=== PATIENT | female | born 1990 | race Caucasian/White ===

== ENCOUNTER 2020-10-27 16:53 | Inpatient (IN) | payer OTHER ==
[2020-10-27] MEDS ORDERED: NALOXONE 0.4 MG/ML 1 ML VIAL IVP STA (16:57)
[2020-10-27] MEDS ORDERED: SODIUM CHLORIDE 0.9% 500 ML 500 ML IV STA (17:01)
[2020-10-27] MEDS ORDERED: NALOXONE 0.4 MG/ML 1 ML VIAL IV STA (17:01)
[2020-10-27] MEDS ORDERED: MIDAZOLAM 1 MG/ML 5 ML VIAL IV STA (17:05)
[2020-10-27] MEDS ORDERED: SUCCINYLCHOLINE CHLORIDE VIAL 200 MG/10 ML VIAL IV STA (17:05)
--- NOTE | 2020-10-27 17:10 | ED ---
General Adult HPI - General Chief complaint: Overdose Stated complaint: overdose Time Seen by Provider: 10/27/20 16:53 Source: EMS, RN notes reviewed Mode of arrival: EMS Limitations: altered mental status, physical limitation - History of Present Illness Initial comments: Patient is unresponsive 30-year-old female presenting to the emergency department from rehab facility. Patient was reportedly checking then when she became unresponsive. Bystander CPR was done for around 10 minutes and nasal Narcan was provided. EMS did additional CPR proximal he 5 minutes. Patient was PEA on the monitor. Patient received additional nasal Narcan and did start breathing on her own. Patient is unresponsive at this time and provides no information. Patient did receive 12 mg of intranasal Narcan. Patient does have multiple bottles and pills and some strange liquid in the bottle on her person hidden in her hair and in her bra. It was concern of possible . - Related Data Home Medications Medication Instructions Recorded Confirmed Gabapentin [Neurontin] 600 mg PO TID 10/27/20 10/27/20 Mirtazapine 45 mg PO HS 10/27/20 10/27/20 Prazosin HCl 2 mg PO HS 10/27/20 10/27/20 Topiramate 50 mg PO DAILY 10/27/20 10/27/20 buprenorphine HCL [Subutex] 8 mg SL BID 10/27/20 10/27/20 Allergies Allergy/AdvReac Type Severity Reaction Status Date / Time Unable to Assess Allergy Verified 10/27/20 17:38 Review of Systems ROS Statement: Those systems with pertinent positive or pertinent negative responses have been documented in the HPI. ROS Other: All systems not noted in ROS Statement are negative. Limitations: ROS unobtainable due to patients medical condition Past Medical History Past Medical History: Unable to Obtain History of Any Multi-Drug Resistant Organisms: Unobtainable Past Surgical History: Unable to Obtain Past Psychological History: Unable to Obtain Smoking Status: Unknown if ever smoked Past Alcohol Use History: Unable to Obtain Past Drug Use History: Unable to Obtain General Exam Limitations: altered mental status, physical limitation General appearance: other (Patient is drowsy but breathing on her own. Limited gag reflex) Head exam: Present: atraumatic Eye exam: Present: normal appearance, PERRL ENT exam: Present: normal oropharynx Neck exam: Present: normal inspection Respiratory exam: Present: normal lung sounds bilaterally Cardiovascular Exam: Present: regular rate, normal rhythm GI/Abdominal exam: Present: soft. Absent: distended, tenderness Extremities exam: Present: normal inspection Neurological exam: Present: other (Unresponsive. No gag. Does not withdraw to pain.) Psychiatric exam: Present: other (Unresponsive) Skin exam: Present: normal color Course Vital Signs 10/27/20 10/27/20 10/27/20 16:54 16:55 17:04 Temperature 97.6 F 98.0 F Pulse Rate 63 Respiratory 10 L 10 L Rate Blood Pressure 119/81 O2 Sat by Pulse 100 Oximetry 10/27/20 10/27/20 10/27/20 18:34 19:32 20:00 Temperature Pulse Rate 67 78 Respiratory 10 L 26 H 13 Rate Blood Pressure 124/88 122/93 O2 Sat by Pulse 100 100 Oximetry - Reevaluation(s) Reevaluation #1: 10/27/20 17:09 Patient given 0.4 Narcan followed by 2 mg of Narcan still with Limited gag reflex. EKG Findings - EKG Comments: EKG Findings:: Normal sinus rhythm at 79. GA 158. QRS 104. QT 396. QTc 454. Normal axis. Normal QRS. Inferior T wave inversion. Procedures - Intubation Paralytic: Succinylcholine Mg Given: 100 Laryngoscope: Rick Size: 3 ET Tube Size: 8 Tube Secured Depth (cm): 23 Tube Secured Location: lips Tube Placement Confirmation: visualized tube passing through cords, equal breath sounds bilaterally, no breath sounds over epigastrium, confirmation by capnometry Patient Tolerated Procedure: well, no complications Medical Decision Making - Medical Decision Making Patient reevaluated. Patient is moving somewhat on her own. Mother is present and updated. Case was discussed in detail with Nomi Perez who will admit for hospital call. - Lab Data Result diagrams: 10/27/20 17:13 10/27/20 17:13 Lab Results 10/27/20 10/27/20 10/27/20 Range/Units 17:13 17:13 17:13 WBC 10.9 H (3.8-10.6) k/uL RBC 5.42 H (3.80-5.40) m/uL Hgb 16.1 H (11.4-16.0) gm/dL Hct 46.6 H (34.0-46.0) % MCV 85.8 (80.0-100.0) fL MCH 29.7 (25.0-35.0) pg MCHC 34.7 (31.0-37.0) g/dL RDW 12.9 (11.5-15.5) % Plt Count 299 (150-450) k/uL MPV 6.9 Neutrophils % 45 % Lymphocytes % 46 % Monocytes % 4 % Eosinophils % 2 % Basophils % 0 % Neutrophils # 4.9 (1.3-7.7) k/uL Lymphocytes # 5.1 H (1.0-4.8) k/uL Monocytes # 0.5 (0-1.0) k/uL Eosinophils # 0.3 (0-0.7) k/uL Basophils # 0.1 (0-0.2) k/uL Manual Slide Review Performed RBC Morphology Normal Sample Site ABG pH (7.35-7.45) ABG pCO2 (35-45) mmHg ABG pO2 (83-108) mmHg ABG HCO3 (21-25) mmol/L ABG Total CO2 (19-24) mmol/L ABG O2 Saturation (94-97) % ABG Base Excess mmol/L Hadley Test FiO2 % Sodium 137 (137-145) mmol/L Potassium 3.8 (3.5-5.1) mmol/L Chloride 104 (98-107) mmol/L Carbon Dioxide 19 L (22-30) mmol/L Anion Gap 14 mmol/L BUN 8 (7-17) mg/dL Creatinine 0.59 (0.52-1.04) mg/dL Est GFR (CKD-EPI)AfAm >90 (>60 ml/min/1.73 sqM) Est GFR (CKD-EPI)NonAf >90 (>60 ml/min/1.73 sqM) Glucose 103 H (74-99) mg/dL Calcium 9.5 (8.4-10.2) mg/dL Total Bilirubin 0.6 (0.2-1.3) mg/dL AST 34 (14-36) U/L ALT 24 (4-34) U/L Alkaline Phosphatase 52 (38-126) U/L Creatine Kinase 508 H (30-135) U/L Troponin I <0.012 (0.000-0.034) ng/mL Total Protein 7.3 (6.3-8.2) g/dL Albumin 4.2 (3.5-5.0) g/dL HCG, Quant <2.4 mIU/mL Urine Color Urine Appearance (Clear) Urine pH (5.0-8.0) Ur Specific [place] (1.001-1.035) Urine Protein (Negative) Urine Glucose (UA) (Negative) Urine Ketones (Negative) Urine Blood (Negative) Urine Nitrite (Negative) Urine Bilirubin (Negative) Urine Urobilinogen (<2.0) mg/dL Ur Leukocyte Esterase (Negative) Urine WBC (0-5) /hpf Ur Squamous Epith Cells (0-4) /hpf Urine Bacteria (None) /hpf Urine Mucus (None) /hpf Salicylates <1.0 mg/dL Urine Opiates Screen (NotDetected) Ur Oxycodone Screen (NotDetected) Urine Methadone Screen (NotDetected) Ur Propoxyphene Screen (NotDetected) Acetaminophen <10.0 ug/mL Ur Barbiturates Screen (NotDetected) U Tricyclic Antidepress (NotDetected) Ur Phencyclidine Scrn (NotDetected) Ur Amphetamines Screen (NotDetected) U Methamphetamines Scrn (NotDetected) U Benzodiazepines Scrn (NotDetected) Urine Cocaine Screen (NotDetected) U Marijuana (THC) Screen (NotDetected) Serum Alcohol 147 mg/dL 10/27/20 10/27/20 Range/Units 17:19 18:29 WBC (3.8-10.6) k/uL RBC (3.80-5.40) m/uL Hgb (11.4-16.0) gm/dL Hct (34.0-46.0) % MCV (80.0-100.0) fL MCH (25.0-35.0) pg MCHC (31.0-37.0) g/dL RDW (11.5-15.5) % Plt Count (150-450) k/uL MPV Neutrophils % % Lymphocytes % % Monocytes % % Eosinophils % % Basophils % % Neutrophils # (1.3-7.7) k/uL Lymphocytes # (1.0-4.8) k/uL Monocytes # (0-1.0) k/uL Eosinophils # (0-0.7) k/uL Basophils # (0-0.2) k/uL Manual Slide Review RBC Morphology Sample Site LRAD ABG pH 7.49 H (7.35-7.45) ABG pCO2 16 L* (35-45) mmHg ABG pO2 115 H (83-108) mmHg ABG HCO3 12 L (21-25) mmol/L ABG Total CO2 13 L (19-24) mmol/L ABG O2 Saturation 88.1 L (94-97) % ABG Base Excess -11.1 mmol/L Hadley Test Yes FiO2 80 % Sodium (137-145) mmol/L Potassium (3.5-5.1) mmol/L Chloride (98-107) mmol/L Carbon Dioxide (22-30) mmol/L Anion Gap mmol/L BUN (7-17) mg/dL Creatinine (0.52-1.04) mg/dL Est GFR (CKD-EPI)AfAm (>60 ml/min/1.73 sqM) Est GFR (CKD-EPI)NonAf (>60 ml/min/1.73 sqM) Glucose (74-99) mg/dL Calcium (8.4-10.2) mg/dL Total Bilirubin (0.2-1.3) mg/dL AST (14-36) U/L ALT (4-34) U/L Alkaline Phosphatase (38-126) U/L Creatine Kinase (30-135) U/L Troponin I (0.000-0.034) ng/mL Total Protein (6.3-8.2) g/dL Albumin (3.5-5.0) g/dL HCG, Quant mIU/mL Urine Color Yellow Urine Appearance Cloudy H (Clear) Urine pH 7.5 (5.0-8.0) Ur Specific [place] 1.015 (1.001-1.035) Urine Protein Negative (Negative) Urine Glucose (UA) Negative (Negative) Urine Ketones Negative (Negative) Urine Blood Negative (Negative) Urine Nitrite Negative (Negative) Urine Bilirubin Negative (Negative) Urine Urobilinogen <2.0 (<2.0) mg/dL Ur Leukocyte Esterase Negative (Negative) Urine WBC 3 (0-5) /hpf Ur Squamous Epith Cells <1 (0-4) /hpf Urine Bacteria Rare H (None) /hpf Urine Mucus Rare H (None) /hpf Salicylates mg/dL Urine Opiates Screen Detected H (NotDetected) Ur Oxycodone Screen Not Detected (NotDetected) Urine Methadone Screen Not Detected (NotDetected) Ur Propoxyphene Screen Not Detected (NotDetected) Acetaminophen ug/mL Ur Barbiturates Screen Not Detected (NotDetected) U Tricyclic Antidepress Not Detected (NotDetected) Ur Phencyclidine Scrn Not Detected (NotDetected) Ur Amphetamines Screen Not Detected (NotDetected) U Methamphetamines Scrn Not Detected (NotDetected) U Benzodiazepines Scrn Detected H (NotDetected) Urine Cocaine Screen Detected H (NotDetected) U Marijuana (THC) Screen Detected H (NotDetected) Serum Alcohol mg/dL - Radiology Data Radiology results: report reviewed (Computed tomography scan of the brain does not reveal acute abnormality), image reviewed (Chest x-ray reveals no acute pro cess. Gastric tube and endotracheal tube present) Critical Care Time Critical Care Time: Yes Total Critical Care Time: 32 Disposition Clinical Impression: Drug overdose, Alcohol intoxication, Altered mental status, Cardiac arrest Disposition: ADMITTED IP TO THIS HOSP Is patient prescribed a controlled substance at d/c from ED?: No Referrals: None,Stated [Primary Care Provider] - 1-2 days Decision Time: 20:27
[2020-10-27 17:25] LABS: Basophils # (A) 0.1 k/uL (0-0.2); Basophils % (A) 0 %; Eosinophils # (A) 0.3 k/uL (0-0.7); Eosinophils % (A) 2 %; HCT 46.6 % (34.0-46.0); HGB 16.1 gm/dL (11.4-16.0); Lymphocytes # (A) 5.1 k/uL (1.0-4.8); Lymphocytes % (A) 46 %; MCH 29.7 pg (25.0-35.0); MCHC 34.7 g/dL (31.0-37.0); MCV 85.8 fL (80.0-100.0); Mean Platelet Volume 6.9; Monocytes # (A) 0.5 k/uL (0-1.0); Monocytes % (A) 4 %; Neutrophils # (A) 4.9 k/uL (1.3-7.7); Neutrophils % (A) 45 %; Platelet Count 299 k/uL (150-450); RBC 5.42 m/uL (3.80-5.40); RDW 12.9 % (11.5-15.5); WBC 10.9 k/uL (3.8-10.6)
[2020-10-27 17:36] LABS: ALT 24 U/L (4-34); AST 34 U/L (14-36); Acetaminophen <10.0 ug/mL; African American GFR (CKD) >90 (>60 ml/min/1.73 sqM); Albumin 4.2 g/dL (3.5-5.0); Alkaline Phosphatase 52 U/L (38-126); Anion Gap 14 mmol/L; Blood Urea Nitrogen 8 mg/dL (7-17); Calcium 9.5 mg/dL (8.4-10.2); Carbon Dioxide 19 mmol/L (22-30); Chloride 104 mmol/L (98-107); Creatine Kinase 508 U/L (30-135); Glucose 103 mg/dL (74-99); Non-African American GFR(CKD) >90 (>60 ml/min/1.73 sqM); Potassium 3.8 mmol/L (3.5-5.1); Salicylate <1.0 mg/dL; Sodium 137 mmol/L (137-145); Total Bilirubin 0.6 mg/dL (0.2-1.3); Total Protein 7.3 g/dL (6.3-8.2)
[2020-10-27 17:43] LABS: Alcohol 147 mg/dL
[2020-10-27 17:51] LABS: HCG,Quantitative Serum <2.4 mIU/mL
[2020-10-27 18:32] LABS: Allen Test Performed? Yes
[2020-10-27] MEDS: NALOXONE (MDV) 2 MG in SODIUM CHLORIDE 0.9% 250 ML IV SCH ×2 (18:34→21:29)
[2020-10-27 18:35] LABS: Appearance,Urine Cloudy (Clear); Bacteria,Urine Rare /hpf; Bilirubin,Urine Negative (Negative); Blood,Urine Negative (Negative); Color,Urine Yellow; Glucose,Urine (UA) Negative (Negative); Ketones,Urine Negative (Negative); Leukocyte Esterase,Urine Negative (Negative); Mucus,Urine Rare /hpf; Nitrite,Urine Negative (Negative); PH, Urine 7.5 (5.0-8.0); Protein,Urine Negative (Negative); Specific Gravity,Urine 1.015 (1.001-1.035); Squamous Epithelial Cell,Urine <1 /hpf (0-4); Urobilinogen,Urine <2.0 mg/dL (<2.0); WBC,Urine 3 /hpf (0-5)
[2020-10-27 18:36] LABS: Amphetamine Screen,Urine Not Detected (NotDetected); Barbiturate Screen,Urine Not Detected (NotDetected); Benzodiazepines Screen,Urine Detected (NotDetected); Cocaine Screen,Urine Detected (NotDetected); Methadone Screen, Urine Not Detected (NotDetected); Opiate Screen,Urine Detected (NotDetected); Oxycodone Screen, Urine Not Detected (NotDetected); Phencyclidine Screen,Urine Not Detected (NotDetected); Tricyclic Antidepressant,Urine Not Detected (NotDetected); Urn Cannabinoid Scrn Detected (NotDetected)
[2020-10-27 18:39] LABS: ABG PCO2 16 mmHg (35-45); ABG PH 7.49 (7.35-7.45); ABG PO2 115 mmHg (83-108); ABG TCO2 13 mmol/L (19-24)
[2020-10-27 18:40] LABS: ABG Base Excess -11.1 mmol/L; ABG HCO3 12 mmol/L (21-25); ABG Oxygen Saturation 88.1 % (94-97)
--- NOTE | 2020-10-27 18:46 | XR ---
EXAMINATION TYPE: XR chest 1V portable DATE OF EXAM: 10/27/2020 CLINICAL HISTORY: ams. OG tube and endotracheal tube placement. TECHNIQUE: Portable supine view of the chest. COMPARISON: None FINDINGS: The bilateral lung apices are not included on the image. Endotracheal tube distal tip appr oximately 2.2 cm from the chata. Enteric tube coiled over the stomach with distal tip and side-port over the gastric fundus. Cardiac silhouette normal. Pulmonary vasculature normal. No pleural effusion or focal airspace opacity of the visualized portions of the lungs. Supine technique limits evaluatio n for pneumothorax, with no definitive large free air collection. IMPRESSION: 1. Endotracheal tube distal tip 2.2 cm and the chata. 2. Enteric tube coiled over the stomach with distal tip and side-port over the gastric fundus. 3. The visualized portions of the lungs are clear. The bilateral lung apices are incompletely imaged.
--- NOTE | 2020-10-27 20:16 | CT ---
EXAMINATION TYPE: CT brain wo con DATE OF EXAM: 10/27/2020 HISTORY: AMS, overdose. CT DLP: 1173.4 mGycm. Automated Exposure Control for Dose Reduction was Utilized. TECHNIQUE: CT scan of the head is performed without contrast. COMPARISON: None FINDINGS: There is no acute intracranial hemorrhage, midline shift, or mass effect identified. The ventricles, sulci, and cisterns are normal in size and configuration. No abnormal extra-axial fluid collection. No depressed calvarial fracture. The globes are grossly sym metric. Mucosal thickening of the ethmoid air cells. IMPRESSION: No acute intracranial hemorrhage, midline shift, or mass effect.
[2020-10-27] MEDS ORDERED: NALOXONE 0.4 MG/ML 1 ML VIAL IV PRN (20:29)
[2020-10-27] MEDS ORDERED: LORazepam 2 MG/ML INJ IV PRN (20:39)
[2020-10-27] MEDS: SODIUM CHLORIDE 0.9% 1,000 ML IV SCH (21:31)
[2020-10-27] MEDS: HEPARIN SODIUM,PORCINE/PF 5,000 UNIT/0.5 ML SYRINGE SQ SCH (22:30)
[2020-10-28 03:13] LABS: Glucose,Whole Blood 110 mg/dL (75-99)
[2020-10-28 05:26] LABS: Basophils % (A) 0 %; Eosinophils # (A) 0.1 k/uL (0-0.7); Eosinophils % (A) 0 %; HCT 47.7 % (34.0-46.0); HGB 16.3 gm/dL (11.4-16.0); Lymphocytes # (A) 0.9 k/uL (1.0-4.8); Lymphocytes % (A) 6 %; MCH 29.8 pg (25.0-35.0); MCHC 34.2 g/dL (31.0-37.0); MCV 87.3 fL (80.0-100.0); Mean Platelet Volume 6.9; Monocytes # (A) 0.5 k/uL (0-1.0); Monocytes % (A) 3 %; Neutrophils # (A) 14.3 k/uL (1.3-7.7); Neutrophils % (A) 90 %; Platelet Count 262 k/uL (150-450); RBC 5.46 m/uL (3.80-5.40); RDW 13.2 % (11.5-15.5); WBC 15.9 k/uL (3.8-10.6)
[2020-10-28 05:33] LABS: ABG Base Excess -2.6 mmol/L; ABG HCO3 22 mmol/L (21-25); ABG PCO2 36 mmHg (35-45); ABG PO2 147 mmHg (83-108); ABG TCO2 23 mmol/L (19-24); Allen Test Performed? Yes
[2020-10-28 06:02] LABS: African American GFR (CKD) >90 (>60 ml/min/1.73 sqM); Anion Gap 9 mmol/L; Blood Urea Nitrogen 6 mg/dL (7-17); Calcium 8.7 mg/dL (8.4-10.2); Carbon Dioxide 20 mmol/L (22-30); Chloride 107 mmol/L (98-107); Glucose 103 mg/dL (74-99); Non-African American GFR(CKD) >90 (>60 ml/min/1.73 sqM); Potassium 3.5 mmol/L (3.5-5.1); Sodium 136 mmol/L (137-145)
--- NOTE | 2020-10-28 06:02 | XR ---
EXAMINATION TYPE: XR chest 1V portable DATE OF EXAM: 10/28/2020 CLINICAL HISTORY: Difficulty breathing progress study. TECHNIQUE: Single AP portable semiupright view of the chest is obtained. COMPARISON: Chest x-ray from one day earlier FINDINGS: Stable endotracheal and orogastric tubes. New right basilar opacity silhouetting right hemidiaphragm. Left lung remains clear. Cardiac silhouet te size remains within normal limits. Osseous structures are intact. Cholecystectomy clips are redemo nstrated. IMPRESSION: New small right pleural effusion and right basilar acute infiltrate and/or atelectasis. P ossible developing aspiration pneumonia given history of drug overdose. Correlate clinically.
[2020-10-28] MEDS ORDERED: SODIUM CHLORIDE 0.9% 1,000 ML IV ONE (07:56)
[2020-10-28] MEDS: SODIUM CHLORIDE 0.9% 1,000 ML IV SCH ×2 (08:09→14:34)
[2020-10-28] MEDS: NALOXONE (MDV) 2 MG in SODIUM CHLORIDE 0.9% 250 ML IV SCH (08:11)
[2020-10-28] MEDS ORDERED: ACETAMINOPHEN TAB 325 MG TAB PO PRN (08:29)
--- NOTE | 2020-10-28 08:51 | US ---
EXAMINATION TYPE: US pelvic complete DATE OF EXAM: 10/28/2020 COMPARISON: NONE CLINICAL HISTORY: possible ?. intubated ICU overdose patient where mother states she is 12-1 4wks but beta HCG is <2.4, fever with vaginal discharge that has foul odor. TECHNIQUE: TA Transabdominal sonographic images of the pelvis were acquired. Date of LMP: unknown EXAM MEASUREMENTS: Uterus: 9.4 x 5.2 x 3.9 Endometrial Stripe: 1.0cm Right Ovary: 3.6 x 3.5 x 1.8 cm Left Ovary: 3.2 x 1.5 x 1.6 cm 1. Uterus: Anteverted wnl 2. Endometrium: wnl 3. Right Ovary: wnl 4. Left Ovary: wnl 5. Bilateral Adnexa: fluid seen surrounding bilateral ovaries of unknown etiology 6. Posterior cul-de-sac: wnl Transabdominal pelvic ultrasound shows heterogeneous uterus. Endometrial measures 10 mm in thickness. No gestational sac, yolk sac, or pole. Small amount of free fluid in pelvis extends to surroun d both ovaries. Both ovaries symmetric and normal in size. Hare catheter decompresses bladder. IMPRESSION: No intrauterine gestation seen currently. Small amount of free fluid in pelvis is nonspec ific.
--- NOTE | 2020-10-28 08:57 | HP ---
HISTORY AND PHYSICAL This 30-year-old female came to the emergency room from the rehab facility. She became unresponsive. Did CPR on her for 10 minutes by an observer. Narcan was provided. The patient was PEA on the monitor. Received Narcan and did start breathing on her own. She was unresponsive. She received 12 mg intranasal Narcan. She is in ICU on the vent at this time. She has multiple bottles of pills and some strange liquid in a bottle. Possible overdose. Drafter Seismograph, Dr. Joe, has been consulted as she is in ICU on a vent. MEDICATIONS: Medications at home, she takes: 1. Neurontin 600 t.i.d. 2. Mirtazapine 45 at night. 3. Prazosin 2 mg at night. 4. Topamax 50 mg daily. 5. Subutex 8 mL sublingual b.i.d. ALLERGIES: Unable to assess. REVIEW OF SYSTEMS: Unable to assess. PAST MEDICAL HISTORY: Past medical history is unknown. PHYSICAL EXAMINATION: She is resting comfortably on the vent. HEAD: Normocephalic, atraumatic. LUNGS: Normal lung sounds. HEART: Regular rate and rhythm. ABDOMEN: Soft, resting comfortably. EXTREMITIES: No edema. No rash. EKG shows sinus rhythm. White count 7.9, hemoglobin 16.1. CT scan of the brain is negative. Chest x-ray is negative. Urine drug screen positive for opiates, benzos, cocaine, and marijuana. Gastric tube was placed. ASSESSMENT: 1. Drug overdose. 2. Alcohol intoxication. 3. Altered mental status. 4. Cardiac arrest. Prognosis guarded. Await for endocrinology specialist. Recommendations from Poison Control. Prognosis extremely guarded. MMODL / IJN: [id number] /
[2020-10-28] MEDS ORDERED: PANTOPRAZOLE 40 MG/10 ML VIAL IV SCH (09:00)
[2020-10-28] MEDS: PANTOPRAZOLE 40 MG/10 ML VIAL IV SCH ×2 (09:48→21:58)
[2020-10-28] MEDS: HEPARIN SODIUM,PORCINE/PF 5,000 UNIT/0.5 ML SYRINGE SQ SCH ×2 (09:48→21:58)
[2020-10-28] MEDS: PIPERACILLIN-TAZOBACTAM 3.375 GM in SODIUM CHLORIDE 0.9% 100 ML IVPB SCH ×2 (09:49→16:06)
[2020-10-28 12:36] VITALS: BMI 25.9
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
--- NOTE | 2020-10-28 13:46 | P.PN ---
Progress Note - Text Progress Note Date: 10/28/20 The patient is somnolent at this time. Psychiatry will attempt re-evaluate the patient tomorrow. -Geronimo Guardado MD
--- NOTE | 2020-10-28 14:18 | EEG ---
ELECTROENCEPHALOGRAM REPORT DATE OF SERVICE: 10/28/2020 PREAMBLE: This is a 30-year-old female, who had a cardiac arrest. This study is performed to evaluate for any epileptiform activity and evaluate for any encephalopathy. EEG FINDINGS: This is a 21 channel routine EEG recording in a patient utilizing 10/20 international system with referential bipolar montages. The background consists of well-developed, but poorly regulated, mixed frequencies of low-voltage fast frequency beta, intermixed with some theta activity. Background does not seem to be reactive to eye opening or closing or to any photic stimulation. Different stages of sleep were not seen. No focal or generalized epileptiform activity was seen. IMPRESSION: This is a mildly abnormal EEG due to the presence of excessive amount of low-voltage fast frequency beta, suggestive of medication effect. Poorly reactive background, with mild intermittent slowing suggests of mild encephalopathy. No epileptiform activity was seen. MMLUISL / IJN: [id number] /
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
[2020-10-28] MEDS: metroNIDAZOLE-NS PMX 500 MG in SALINE 1 100ML.BAG IVPB SCH (16:05)
[2020-10-28] MEDS ORDERED: levETIRAcetam IV 500 MG in SODIUM CHLORIDE 0.9% 100 ML IVPB SCH (21:00)
[2020-10-28] MEDS ORDERED: DOXYCYCLINE 100 MG in SODIUM CHLORIDE 0.9% 100 ML IVPB SCH (21:00)
[2020-10-29] MEDS: metroNIDAZOLE-NS PMX 500 MG in SALINE 1 100ML.BAG IVPB SCH ×2 (01:10→08:13)
[2020-10-29] MEDS: PIPERACILLIN-TAZOBACTAM 3.375 GM in SODIUM CHLORIDE 0.9% 100 ML IVPB SCH ×2 (01:10→08:13)
[2020-10-29 04:04] LABS: Basophils % (A) 0 %; Eosinophils # (A) 0.1 k/uL (0-0.7); Eosinophils % (A) 1 %; HCT 38.8 % (34.0-46.0); Lymphocytes # (A) 1.7 k/uL (1.0-4.8); Lymphocytes % (A) 14 %; MCH 29.1 pg (25.0-35.0); MCHC 33.5 g/dL (31.0-37.0); Mean Platelet Volume 6.9; Monocytes # (A) 0.4 k/uL (0-1.0); Monocytes % (A) 4 %; Neutrophils # (A) 9.7 k/uL (1.3-7.7); Neutrophils % (A) 80 %; Platelet Count 214 k/uL (150-450); RBC 4.46 m/uL (3.80-5.40); RDW 13.1 % (11.5-15.5); WBC 12.1 k/uL (3.8-10.6)
[2020-10-29 04:44] LABS: African American GFR (CKD) >90 (>60 ml/min/1.73 sqM); Anion Gap 7 mmol/L; Blood Urea Nitrogen 7 mg/dL (7-17); Calcium 8.2 mg/dL (8.4-10.2); Carbon Dioxide 20 mmol/L (22-30); Chloride 107 mmol/L (98-107); Glucose 84 mg/dL (74-99); Non-African American GFR(CKD) >90 (>60 ml/min/1.73 sqM); Potassium 3.5 mmol/L (3.5-5.1); Sodium 134 mmol/L (137-145)
--- NOTE | 2020-10-29 07:43 | XR ---
EXAMINATION TYPE: XR chest 1V portable DATE OF EXAM: 10/29/2020 CLINICAL HISTORY: Difficulty breathing and pneumonia progress study. TECHNIQUE: Single AP portable upright view of the chest is obtained. COMPARISON: Chest x-ray from one and 2 days earlier FINDINGS: Interval extubation with removal of endotracheal and orogastric tubes. Stable patchy right basilar opacity with improved visualization right hemidiaphragm. There is new pat saige left basilar opacity. Cardiac silhouette size is more prominent, mildly enlarged on current study . Osseous structures are intact. IMPRESSION: Interval extubation. New patchy left basilar atelectasis and/or infiltrate. Persistent pa tchy right basilar infiltrate and/or atelectasis stable or slightly improved.
[2020-10-29] MEDS: PANTOPRAZOLE 40 MG/10 ML VIAL IV SCH (08:14)
[2020-10-29] MEDS: HEPARIN SODIUM,PORCINE/PF 5,000 UNIT/0.5 ML SYRINGE SQ SCH (08:14)
[2020-10-29] MEDS: SODIUM CHLORIDE 0.9% 1,000 ML IV SCH ×3 (08:14→12:38)
[2020-10-29] MEDS ORDERED: metroNIDAZOLE 500 MG TAB PO SCH ×2 (09:00→21:00)
[2020-10-29] MEDS ORDERED: DOXYCYCLINE 100 MG CAP PO SCH (09:00)
[2020-10-29] MEDS ORDERED: AMOXIC-POT CLAV 875-125MG 1 EACH TAB PO SCH ×2 (09:00→21:00)
--- NOTE | 2020-10-29 09:17 | P.PN ---
Subjective Progress Note Date: 10/29/20 This is a 30-year-old female who was in the rehab facility yesterday, apparently she has history of multiple drug abuse, patient was placed in the rehab facility by her grandparents, and she was found unresponsive in the rehab facility. Bystander performed CPR on the patient, this was done for about 10 minutes. Nasal Narcan was provided. EMS arrived to the scene within 5 minutes, CPR was continued for 5 more minutes. Patient was supposedly in pulseless electrical activity on the monitor. Additional nasal Narcan was given, patient apparently started breathing on her own. But she was unresponsive. Arrived to the ER, given more Narcan, and she was placed on Narcan drip patient was intubated in the ER, and the patient was found to have bottled and builds and some liquid in the bottle on her person he did in her hair and in her bra. At any rate patient was noted to be hemodynamically stable after the return of spontaneous circulation. Patient was admitted to the ICU, placed on propofol, and I was asked to see her on consultation. I manage her ventilator settings overnight. I evaluated the patient this morning, discontinued her propofol, awake and the patient, patient was responsive, however she was a bit sleepy. Hence I continue to hold her propofol, and I kept her on pressure support of 8 and CPAP, and I plan to x-ray the patient later on today. In the meantime there was a concern about intrauterine , patient had a negative serum hCG, pelvic ultrasound was done, question the possibility of pelvic inflammatory disease, hence INTEGRITY ENGINEER was consulted. Asked x-ray showed evidence of aspiration pneumonia especially in the right lower lobe, hence the patient was placed empirically on Zosyn. On 10/29/2020 patient seen in follow-up in intensive care unit, she was succ essfully weaned and extubated from the mechanical ventilator sometime last night and she is currently on 2 L of oxygen, satting 99%, she is breathing comfortably, vital signs are stable hemodynamically stable, no fever or chills, she is awake and oriented 3, in no acute events overnight, today's chest x-ray shows A patchy left basilar atelectasis and/or infiltrate, today's labs have been reviewed, with blood cell count is down trending is down to 12.1, hemoglobin is 13, sodium is 134, potassium 3.5, chloride is 107, CO2 is 20, BUN 7 creatinine 0.58. Clinically stable, she is tolerating sips of clear liquids, and she'll be started on a regular diet, she is on a combination of doxycycline, Zosyn and Flagyl for aspiration pneumonia and possibility of above pelvic inflammatory disease. acute events overnight, and patient is clear for transfer to medical surgical floor without telemetry this morning Objective - Vital Signs Vital signs: Vital Signs Temp 98.6 F 10/29/20 09:00 Pulse 75 10/29/20 09:00 Resp 14 10/29/20 09:00 BP 115/62 10/29/20 09:00 Pulse Ox 99 10/29/20 09:00 Intake & Output 10/28/20 10/29/20 10/29/20 18:59 06:59 18:59 Intake Total 2520.82 1680 250 Output Total 810 1050 225 Balance 1710.82 630 25 Weight 75 kg Intake: IV 2500 1200 250 0.9 NACL bolus 1000 Doxycycline 100 mg In 100 Sodium Chloride 0.9% 100 ml @ 100 mls/hr IVPB Q12HR [facility] Rx#:[id number] Piperacillin-Tazobactam 3 125 .375 gm In Sodium Chloride 0.9% 100 ml @ 25 mls/hr IVPB Q8HR [facility] Rx# :[id number] Sodium Chloride 0.9% 1, 1500 875 250 000 ml @ 125 mls/hr IV . Q8H [facility] Rx#:[id number] metroNIDAZOLE-NS PMX 500 100 mg In Saline 1 100ml.bag @ 100 mls/hr IVPB Q8HR [facility] Rx#:[id number] Intake, IV Titration 20.82 Amount propofoL 1,000 mg In 20.82 Empty Bag 1 bag @ Titrate IV .Q0M [facility] Rx#: [id number] Oral 480 Output: Urine 810 1050 225 Other: Voiding Method Indwelling Catheter Indwelling Catheter - Exam GENERAL EXAM: Alert, very pleasant, 30-year-old white female, 2 L of oxygen the pulse ox of 99% comfortable in no apparent distress. HEAD: Normocephalic/atraumatic. EYES: Normal reaction of pupils, equal size. Conjunctiva pink, sclera white. NOSE: Clear with pink turbinates. THROAT: No erythema or exudates. NECK: No masses, no JVD, no thyroid enlargement, no adenopathy. CHEST: No chest wall deformity. Symmetrical expansion. LUNGS: Equal air entry with no crackles, wheeze, rhonchi or dullness. CVS: Regular rate and rhythm, normal S1 and S2, no gallops, no murmurs, no rubs ABDOMEN: Soft, nontender. No hepatosplenomegaly, normal bowel sounds, no guarding or rigidity. EXTREMITIES: No clubbing, no edema, no cyanosis, 2+ pulses and upper and lower extremities. MUSCULOSKELETAL: Muscle strength and tone normal. SPINE: No scoliosis or deformity SKIN: No rashes CENTRAL NERVOUS SYSTEM: Alert and oriented -3. No focal deficits, tone is normal in all 4 extremities. PSYCHIATRIC: Alert and oriented -3. Appropriate affect. Intact judgment and insight. - Labs CBC & Chem 7: 10/29/20 03:50 10/29/20 03:50 Labs: Abnormal Lab Results - Last 24 Hours (Table) 10/29/20 10/29/20 Range/Units 03:50 03:50 WBC 12.1 H (3.8-10.6) k/uL Neutrophils # 9.7 H (1.3-7.7) k/uL Sodium 134 L (137-145) mmol/L Carbon Dioxide 20 L (22-30) mmol/L Calcium 8.2 L (8.4-10.2) mg/dL Microbiology - Last 24 Hours (Table) 10/28/20 10:35 Gram Stain - Preliminary Sputum Sputum Culture - Preliminary 10/28/20 10:15 Urine Culture - Preliminary Urine,Catheterized Assessment and Plan Plan: Acute hypoxic respiratory failure, secondary to multiple drugs overdose, patient had a positive drug screen for benzodiazepines, cocaine, marijuana, alcohol, and the urine opiates were positive. Acute aspiration pneumonia secondary to cardiac arrest and unresponsiveness. Acute cardiac arrest requiring CPR, according to EMS, patient was in pulseless electrical activity up on that initial evaluation. Possible pelvic inflammatory disease based on abnormal ultrasound of the pelvic area. History of drug abuse. Plan We'll switch IV antibiotics to oral antibiotics, patient is currently on, in a ddition of doxycycline, Zosyn and Flagyl, she successfully weaned and x-ray from the mechanical ventilator last night, she is tolerating extubation quite well so far, breathing comfortably, she is on 2 L of oxygen, she is awake and oriented 3, hemodynamically stable, no fever or chills, today's lab work and chest x-ray have been reviewed, patient is clear for transfer out of intensive care unit to medical surgical floor without telemetry. Consult psychiatry I performed a history & physical examination of the patient and discussed their management with my nurse practitioner, Bella Gonzalez. I reviewed the nurse practitioner's note and agree with the documented findings and plan of care. Lung sounds are positive for diminished lung sounds. The findings and the impression was discussed with the patient. I attest to the documentation by the nurse practitioner. Time with Patient: Less than 30
[2020-10-29 10:29] VITALS: BP 108/66; PULSE 73; RESP 18; TEMP 98.1
[2020-10-29] MEDS ORDERED: LORazepam 1 MG TAB PO PRN (11:34)
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
[2020-10-29] MEDS ORDERED: TOPIRAMATE 25 MG TAB PO SCH (21:00)
[2020-10-29] MEDS ORDERED: SERTRALINE 50 MG TAB PO SCH (21:00)
[2020-10-29] MEDS ORDERED: PRAZOSIN 1 MG CAP PO SCH (21:00)
--- NOTE | 2020-10-30 09:42 | P.PN ---
Subjective Progress Note Date: 10/29/20 Patient was seen for a follow-up. Patient now extubated, in the regular floor. Patient complains of throat hurting. Patient states that she is concerned that she would withdraw from alprazolam, fentanyl, alcohol. Patient was placed on Keppra, but was discontinued and she claims that she has side effects from it. Patient currently on Topamax 50 mg once a day for seizure prophylaxis. Patient very upset as to why the visitors are not being allowed to see her. She wants to meet her grandfather and stepdad. Patient states that she does not want to see her mother, as it "aggravates her". Objective - Vital Signs Vital signs: Vital Signs Temp 98.1 F 10/29/20 10:08 Pulse 73 10/29/20 10:08 Resp 18 10/29/20 10:08 BP 108/66 10/29/20 10:08 Pulse Ox 97 10/29/20 10:08 Intake & Output 10/28/20 10/29/20 10/29/20 18:59 06:59 18:59 Intake Total 2520.82 1680 375 Output Total 810 1050 550 Balance 1710.82 630 -175 Weight 75 kg Intake: IV 2500 1200 375 0.9 NACL bolus 1000 Doxycycline 100 mg In 100 Sodium Chloride 0.9% 100 ml @ 100 mls/hr IVPB Q12HR [facility] Rx#:[id number] Piperacillin-Tazobactam 3 125 .375 gm In Sodium Chloride 0.9% 100 ml @ 25 mls/hr IVPB Q8HR [facility] Rx# :[id number] Sodium Chloride 0.9% 1, 1500 875 375 000 ml @ 125 mls/hr IV . Q8H [facility] Rx#:[id number] metroNIDAZOLE-NS PMX 500 100 mg In Saline 1 100ml.bag @ 100 mls/hr IVPB Q8HR [facility] Rx#:[id number] Intake, IV Titration 20.82 Amount propofoL 1,000 mg In 20.82 Empty Bag 1 bag @ Titrate IV .Q0M [facility] Rx#: [id number] Oral 480 Output: Urine 810 1050 550 Other: Voiding Method Indwelling Catheter Indwelling Catheter Indwelling Catheter - Exam On examination patient is a young female, appears slightly depressed, upset for the reasons mentioned above. Speech and language functions are no rmal. She speaks with very low volume. On cranial nerve examination pupils are round and reacting, visual roberson are full, face is symmetric and tongue protrudes the midline. Palatal elevation and sensation normal. On muscle strength testing there is no drift and the strength appears normal in the arms and legs. Patient did not give full effort, but appears fairly symmetric. Reflexes are 1+, and plantars downgoing. Sensory to touch is equal with no neglect. No ataxia. She is slightly tremulous for the outstretched hands. - Labs CBC & Chem 7: 10/29/20 03:50 10/29/20 03:50 Labs: Abnormal Lab Results - Last 24 Hours (Table) 10/29/20 10/29/20 Range/Units 03:50 03:50 WBC 12.1 H (3.8-10.6) k/uL Neutrophils # 9.7 H (1.3-7.7) k/uL Sodium 134 L (137-145) mmol/L Carbon Dioxide 20 L (22-30) mmol/L Calcium 8.2 L (8.4-10.2) mg/dL Microbiology - Last 24 Hours (Table) 10/28/20 10:35 Gram Stain - Preliminary Sputum Sputum Culture - Preliminary Streptococcus pneumoniae 10/28/20 10:15 Urine Culture - Preliminary Urine,Catheterized Assessment and Plan Assessment: * Status post cardiac arrest, due to polysubstance abuse. Although the downtime was at least 15 minutes, but patient has recovered very well, back to baseline. * Polysubstance abuse including benzo, opiates, cocaine and marijuana. (Please refer to social history section of report) * Acute alcohol intoxication. * Seizure disorder, per mother report, currently on Topamax. Uncertain medication compliance. Plan: * Awaiting records from [facility]. * We will increase Topamax to 50 mg twice a day for seizures. * Patient very concerned about withdrawing from alcohol and other substance. We will start patient on Ativan 1 mg orally every 6 hours when necessary. * EEG revealed no epileptiform activity. Excessive fast frequency beta suggestive of medication effect. Some slowing was also seen suggestive of mild encephalopathy. Patient's mother had mentioned that patient has history of seizures in the past. Some of them are related to benzo withdrawal, but sometimes she has seizures which were not provoked due to any substance withdrawal or intoxication. She also states that patient has been on "life- support" 8 times in the past 4 months. Continue Topamax 50 mg twice a day. * Medical management as per ICU. * Recommend patient to follow-up with neurologist locally. * Recommend no driving for 6 months, climbing ladders, operating dangerous machinery or unsupervised swimming. * We will follow.
== END 2020-10-29 15:18 | disposition left against medical advice (07) | DRG 917 ==
LOC: EC 16:53 → 2SICU 20:29 → 4SSUR 10-29 09:57
PROVIDERS: ADMIT Family Medicine; ATTEND Family Medicine
PROC: 0BH17EZ Insertion of Endotracheal Airway into Trachea, Via Natural or Artificial Opening (ICD-10-PCS; principal; 2020-10-27)
PROC: 5A1945Z Respiratory Ventilation, 24-96 Consecutive Hours (ICD-10-PCS; principal; 2020-10-27)
DX: T40.601A Poisoning by unspecified narcotics, accidental (unintentional), initial encounter (principal); I46.9 Cardiac arrest, cause unspecified; J69.0 Pneumonitis due to inhalation of food and vomit; J96.01 Acute respiratory failure with hypoxia; G93.1 Anoxic brain damage, not elsewhere classified; F10.129 Alcohol abuse with intoxication, unspecified; G40.909 Epilepsy, unspecified, not intractable, without status epilepticus; F11.10 Opioid abuse, uncomplicated; F13.10 Sedative, hypnotic or anxiolytic abuse, uncomplicated; F14.10 Cocaine abuse, uncomplicated; F12.10 Cannabis abuse, uncomplicated; F43.10 Post-traumatic stress disorder, unspecified; Z20.822 Contact with and (suspected) exposure to COVID-19; N89.8 Other specified noninflammatory disorders of vagina; Y90.6 Blood alcohol level of 120-199 mg/100 ml; F17.210 Nicotine dependence, cigarettes, uncomplicated; Z79.899 Other long term (current) drug therapy; Z91.5 Personal history of self-harm; Z56.0 Unemployment, unspecified; Z87.820 Personal history of traumatic brain injury; Z86.69 Personal history of other diseases of the nervous system and sense organs; Z91.410 Personal history of adult physical and sexual abuse; Z62.810 Personal history of physical and sexual abuse in childhood; Z87.01 Personal history of pneumonia (recurrent); Z81.4 Family history of other substance abuse and dependence
CPT/HCPCS: 31500; 36415; 36600; 70450; 71045; 76856; 80048; 80053; 80143; 80179; 80306; 80320; 81001; 82550; 82805; 84484; 84702; 85025; 87040; 87070; 87077; 87086; 87186; 87205; 87635; 93005; 94002; 94003; 95819; 96361; 96374; 96375; 99291

== ENCOUNTER 2022-08-05 00:40 | Emergency (ER) | payer OTHER ==
[2022-08-05] MEDS ORDERED: levETIRAcetam IV 1,000 MG in SALINE 1 100ML.BAG IVPB STA (00:51)
[2022-08-05] MEDS ORDERED: SODIUM CHLORIDE 0.9% 1,000 ML IV ONE (00:51)
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
[2022-08-05 01:53] LABS: ALT 14 U/L (4-34); AST 15 U/L (14-36); African American GFR (CKD) >90 (>60 ml/min/1.73 sqM); Albumin 3.2 g/dL (3.5-5.0); Alcohol <10 mg/dL; Alkaline Phosphatase 37 U/L (38-126); Anion Gap 6 mmol/L; Blood Urea Nitrogen 11 mg/dL (7-17); Calcium 8.5 mg/dL (8.4-10.2); Carbon Dioxide 20 mmol/L (22-30); Chloride 109 mmol/L (98-107); Glucose 84 mg/dL (74-99); Lipase 97 U/L (23-300); Magnesium 1.7 mg/dL (1.6-2.3); Non-African American GFR(CKD) >90 (>60 ml/min/1.73 sqM); Potassium 3.7 mmol/L (3.5-5.1); Sodium 135 mmol/L (137-145); Total Bilirubin 0.2 mg/dL (0.2-1.3)
--- NOTE | 2022-08-05 02:08 | US ---
EXAMINATION TYPE: Transabdominal DATE OF EXAM: 08/05/2022 12:54 AM COMPARISON: NONE CLINICAL HISTORY: Vaginal discharge, bleeding in . No care. Patient states she has been spotting for weeks EXAM PERFORMED: Transabdominal (TA) EXAM MEASUREMENTS: GESTATIONAL AGE / DATING Physician Established: Not yet established Dates by LMP: LMP unknown Dates by First Scan: No previous this is first scan Dates by Current Scan for: (15 weeks/4 days) EDC: 01/23/23 Cervix: 3.4cm Placenta: anterior RADHA: 11.2cm HR: 154bpm A single live fetus seen measuring 15 weeks 4 days. No obvious abnormalities visualized at this time. IMPRESSION: No complicating process seen. Cervix is closed. No evidence of placenta previa or placental abruption.
[2022-08-05 02:14] LABS: Appearance,Urine Clear (Clear); Bilirubin,Urine Negative (Negative); Blood,Urine Negative (Negative); Color,Urine Light Yellow; Glucose,Urine (UA) Negative (Negative); Ketones,Urine Negative (Negative); Leukocyte Esterase,Urine Large (Negative); Nitrite,Urine Negative (Negative); Protein,Urine Negative (Negative); RBC,Urine 6 /hpf (0-5); Specific Gravity,Urine 1.015 (1.001-1.035); Squamous Epithelial Cell,Urine 2 /hpf (0-4); Urobilinogen,Urine <2.0 mg/dL (<2.0); WBC,Urine 21 /hpf (0-5)
[2022-08-05 02:30] LABS: Amphetamine Screen,Urine Not Detected (NotDetected); Barbiturate Screen,Urine Not Detected (NotDetected); Benzodiazepines Screen,Urine Detected (NotDetected); Cocaine Screen,Urine Detected (NotDetected); Methadone Screen, Urine Detected (NotDetected); Opiate Screen,Urine Not Detected (NotDetected); Oxycodone Screen, Urine Not Detected (NotDetected); Phencyclidine Screen,Urine Not Detected (NotDetected); Tricyclic Antidepressant,Urine Not Detected (NotDetected); Urn Cannabinoid Scrn Detected (NotDetected)
[2022-08-05 02:39] LABS: HCG,Quantitative Serum 33130.4 mIU/mL
[2022-08-05 02:57] LABS: Basophils % (A) 0 %; Eosinophils # (A) 0.1 k/uL (0-0.7); Eosinophils % (A) 1 %; HGB 12.5 gm/dL (11.4-16.0); Lymphocytes # (A) 2.5 k/uL (1.0-4.8); Lymphocytes % (A) 23 %; MCHC 33.9 g/dL (31.0-37.0); MCV 88.4 fL (80.0-100.0); Mean Platelet Volume 6.8; Monocytes # (A) 0.5 k/uL (0-1.0); Monocytes % (A) 5 %; Neutrophils # (A) 7.4 k/uL (1.3-7.7); Neutrophils % (A) 69 %; Platelet Count 309 k/uL (150-450); RBC 4.18 m/uL (3.80-5.40); WBC 10.7 k/uL (3.8-10.6)
[2022-08-05] MEDS ORDERED: cefTRIAXone 250 MG VIAL IM STA (04:18)
[2022-08-05] MEDS ORDERED: AZITHROMYCIN 500 MG TAB PO STA (04:18)
[2022-08-05] MEDS ORDERED: metroNIDAZOLE 500 MG TAB PO STA (04:18)
[2022-08-05 08:40] VITALS: TEMP 98.2
[2022-08-05] MEDS ORDERED: METHADONE 10 MG TAB PO STA (09:56)
[2022-08-05] MEDS ORDERED: diphenhydrAMINE 50 MG/ML 1 ML VIAL IVP STA ×2 (10:48→16:48)
[2022-08-05] MEDS ORDERED: LORazepam 2 MG/ML INJ IV STA (11:00)
[2022-08-05 14:54] VITALS: RESP 16
[2022-08-05 17:44] VITALS: BP 121/79; PULSE 82
[2022-08-06 13:54] LABS: C. trachomatis,PCR Negative (Neg,Equiv); Chlamydia trachomatis Source Cervix; N. gonorrhoeae,PCR Negative (Neg,Equiv); Neisseria Source Cervix
== END 2022-08-05 17:51 ==
LOC: EC 00:40
DX: O98.312 Other infections with a predominantly sexual mode of transmission complicating pregnancy, second trimester (principal); O99.891 Other specified diseases and conditions complicating pregnancy; O99.342 Other mental disorders complicating pregnancy, second trimester; A64 Unspecified sexually transmitted disease; R45.851 Suicidal ideations; F19.10 Other psychoactive substance abuse, uncomplicated; F10.10 Alcohol abuse, uncomplicated; F32.A Depression, unspecified; G40.909 Epilepsy, unspecified, not intractable, without status epilepticus; Y90.0 Blood alcohol level of less than 20 mg/100 ml; Z20.822 Contact with and (suspected) exposure to COVID-19; Z79.899 Other long term (current) drug therapy; Z87.891 Personal history of nicotine dependence; Z3A.17 17 weeks gestation of pregnancy
CPT/HCPCS: 99285; 36415; 86900; 86901; 80053; 83605; 83690; 83735; 85025; 86850; 81001; 84702; 87808; 87491; 87591; 80306; 87635; 76805; 96374; 96375 ×2; 96376; 96361; 96372; G0480; J2060; J1200; J0696; S0109; J1953; 80320